=== PATIENT | female | born 1970 | race Caucasian/White ===

== ENCOUNTER 2017-01-25 18:46 | Emergency (ER) | payer MEDICARE, OTHER ==
[~2017-01-25 18:46] MED LIST: BACTRIM DS TAB1 EACH PO; CLEOCIN HCL300 MG PO; COREG3.125 MG PO; CRESTOR20 MG PO; ELIQUIS5 MG PO; HUMALOG100 UNIT/1 SQ; LANTUS100 UNIT/1 SQ; NEURONTIN800 MG PO; PLAVIX75 MG PO; PRILOSEC OTC20 MG PO; TYLENOL325 M1 PO; WELLBUTRIN XL300 MG PO; ZESTRIL20 M1 PO
== END 2017-01-25 20:26 | disposition home or self-care (01) ==
LOC: ER 18:46
DX: S81.801D Unspecified open wound, right lower leg, subsequent encounter (principal); X58.XXXD Exposure to other specified factors, subsequent encounter; Z87.19 Personal history of other diseases of the digestive system; I10 Essential (primary) hypertension; Z95.1 Presence of aortocoronary bypass graft; Z98.51 Tubal ligation status; Z79.02 Long term (current) use of antithrombotics/antiplatelets; Z79.4 Long term (current) use of insulin; Z79.899 Other long term (current) drug therapy; Z88.8 Allergy status to other drugs, medicaments and biological substances; Z88.1 Allergy status to other antibiotic agents
CPT/HCPCS: 99070; 99282; 99283

== ENCOUNTER 2017-03-07 16:33 | Emergency (ER) | payer MEDICARE, OTHER | END 2017-03-07 19:50 | disposition other institution (70) | LOC: ER 16:33 | DX: L03.116 Cellulitis of left lower limb (principal); I10 Essential (primary) hypertension; E11.65 Type 2 diabetes mellitus with hyperglycemia; E87.6 Hypokalemia; I73.9 Peripheral vascular disease, unspecified; Z86.14 Personal history of Methicillin resistant Staphylococcus aureus infection; Z88.8 Allergy status to other drugs, medicaments and biological substances; Z88.1 Allergy status to other antibiotic agents; Z79.899 Other long term (current) drug therapy; Z79.4 Long term (current) use of insulin; Z79.02 Long term (current) use of antithrombotics/antiplatelets | CPT/HCPCS: 99284; 99284-25 ==

== ENCOUNTER 2017-03-07 16:33 | Inpatient (IN) | payer MEDICARE, OTHER ==
[~2017-03-07] VITALS: Ht 170.2 cm; Wt 62.0 kg
[2017-03-07 18:25] LABS: BASO # 0.1 10_X3_uL (0.0-0.1); BASO % 0.8 % (0.1-1.2); EOS # 0.3 10_X3_uL (0.0-0.4); EOS % 2.9 % (0.7-5.8); GRAN # 5.4 10_X3_uL (1.6-6.1); GRAN % 58.2 % (34.0-71.1); HEMATOCRIT 37.2 % (34-45); HEMOGLOBIN 13.2 g/dL (11.2-15.7); LYMPH % 32.3 % (19.3-51.7); MEAN CORPUSCULAR HEMOGLOBIN 28.3 pg (27.0-33.0); MEAN CORPUSCULAR HGB CONC 35.5 g/dL (32.0-36.0); MEAN CORPUSCULAR VOLUME 79.7 fL (79-95); MEAN PLATELET VOLUME 9.6 fl (7.5-11.5); MONO # 0.5 10_X3_uL (0.2-0.9); MONO % 5.8 % (4.7-12.5); PLATELET COUNT 489 x10_3/uL (182-369); RED BLOOD COUNT 4.67 x10_6/uL (3.9-5.2); RED CELL DISTRIBUTION WIDTH 15.4 % (11.7-14.4); WHITE BLOOD COUNT 9.3 x10_3/uL (4.0-10.0)
[2017-03-07 18:38] LABS: BLOOD UREA NITROGEN 10 mg/dL (7-18); CARBON DIOXIDE 21 mmol/L (21-32); CREATININE 0.7 mg/dL (0.6-1.3); POTASSIUM 3.2 mmol/L (3.5-5.1); SODIUM 134 mmol/L (136-145)
[2017-03-07 18:48] LABS: GLUCOSE,RANDOM 510 mg/dL (70-99)
[2017-03-08 06:51] LABS: AHDL CHOLESTEROL 24 mg/dL (>40); ALBUMIN 2.9 gm/dL (3.4-5.0); ALKALINE PHOSPHATASE 103 U/L (50-136); ALT/SGPT 5 U/L (3.5-33.9); AST/SGOT 8 U/L (7.04-26.96); BLOOD UREA NITROGEN 13 mg/dL (7-18); CALCIUM 8.6 mg/dL (8.7-10.7); CARBON DIOXIDE 22 mmol/L (21-32); CHOLESTEROL 182 mg/dL (0-200); CREATININE 0.6 mg/dL (0.6-1.3); GLUCOSE,RANDOM 202 mg/dL (70-99); LDL CHOLESTEROL 125 mg/dL (0-99); POTASSIUM 3.1 mmol/L (3.5-5.1); SODIUM 141 mmol/L (136-145); TOTAL PROTEIN 6.1 gm/dL (6.4-8.2); TRIGLYCERIDES 260 mg/dL (30-200)
[2017-03-08 07:06] LABS: BILIRUBIN,TOTAL < 0.15 mg/dL (0.0-1.0)
== END 2017-03-08 19:02 | disposition other institution (70) | DRG 300 ==
LOC: ER 16:33 → MS 19:50 → UNDODEPER 03-09 14:28
PROVIDERS: General Practice; ADMIT Family Medicine
DX: I73.9 Peripheral vascular disease, unspecified (principal); L03.116 Cellulitis of left lower limb; E11.65 Type 2 diabetes mellitus with hyperglycemia; I10 Essential (primary) hypertension; I25.10 Atherosclerotic heart disease of native coronary artery without angina pectoris; Z95.1 Presence of aortocoronary bypass graft; E78.5 Hyperlipidemia, unspecified; R11.2 Nausea with vomiting, unspecified; R63.4 Abnormal weight loss; Z68.21 Body mass index [BMI] 21.0-21.9, adult; F41.9 Anxiety disorder, unspecified; F32.9 Major depressive disorder, single episode, unspecified; E87.6 Hypokalemia; M54.9 Dorsalgia, unspecified; M25.50 Pain in unspecified joint; M79.1 Myalgia; R05 Cough; Z98.51 Tubal ligation status; F17.210 Nicotine dependence, cigarettes, uncomplicated; Z86.14 Personal history of Methicillin resistant Staphylococcus aureus infection; Z85.3 Personal history of malignant neoplasm of breast; Z85.118 Personal history of other malignant neoplasm of bronchus and lung; Z85.028 Personal history of other malignant neoplasm of stomach; Z88.1 Allergy status to other antibiotic agents; Z88.8 Allergy status to other drugs, medicaments and biological substances; Z79.4 Long term (current) use of insulin; Z79.02 Long term (current) use of antithrombotics/antiplatelets; Z79.899 Other long term (current) drug therapy
CPT/HCPCS: 36415; 73630; 80048; 80053; 80061; 82009; 82962; 83036; 85025; 87070; 96365; 99070; 99284; 99284-25; J3370; J7040; J7050; Q0169

== ENCOUNTER 2017-04-12 15:17 | Emergency (ER) | payer MEDICARE, OTHER ==
[2017-04-12 16:16] LABS: BASO # 0.1 10_X3_uL (0.0-0.1); BASO % 0.7 % (0.1-1.2); EOS # 0.4 10_X3_uL (0.0-0.4); EOS % 4.2 % (0.7-5.8); GRAN # 5.8 10_X3_uL (1.6-6.1); GRAN % 60.2 % (34.0-71.1); HEMATOCRIT 32.7 % (34-45); HEMOGLOBIN 10.9 g/dL (11.2-15.7); LYMPH # 2.8 10_X3_uL (1.2-3.7); LYMPH % 28.5 % (19.3-51.7); MEAN CORPUSCULAR HEMOGLOBIN 27.8 pg (27.0-33.0); MEAN CORPUSCULAR HGB CONC 33.3 g/dL (32.0-36.0); MEAN CORPUSCULAR VOLUME 83.4 fL (79-95); MEAN PLATELET VOLUME 9.1 fl (7.5-11.5); MONO # 0.6 10_X3_uL (0.2-0.9); MONO % 6.4 % (4.7-12.5); PLATELET COUNT 444 x10_3/uL (182-369); RED BLOOD COUNT 3.92 x10_6/uL (3.9-5.2); RED CELL DISTRIBUTION WIDTH 15.8 % (11.7-14.4); WHITE BLOOD COUNT 9.7 x10_3/uL (4.0-10.0)
== END 2017-04-12 18:28 | disposition home or self-care (01) ==
LOC: ER 15:17
PROVIDERS: Emergency Medicine
DX: I96 Gangrene, not elsewhere classified (principal); L03.116 Cellulitis of left lower limb; I51.9 Heart disease, unspecified; E11.9 Type 2 diabetes mellitus without complications; Z98.51 Tubal ligation status; Z95.1 Presence of aortocoronary bypass graft; F17.210 Nicotine dependence, cigarettes, uncomplicated; K86.1 Other chronic pancreatitis; Z88.1 Allergy status to other antibiotic agents; Z88.8 Allergy status to other drugs, medicaments and biological substances
CPT/HCPCS: 36415; 85025; 96372; 99283-25

== ENCOUNTER 2017-05-24 21:11 | Emergency (ER) | payer MEDICARE, OTHER | END 2017-05-25 00:45 | disposition home or self-care (01) | LOC: ER 21:11 | DX: S91.301A Unspecified open wound, right foot, initial encounter (principal); L03.115 Cellulitis of right lower limb; X58.XXXA Exposure to other specified factors, initial encounter; Z89.412 Acquired absence of left great toe; E11.9 Type 2 diabetes mellitus without complications; I10 Essential (primary) hypertension; I51.9 Heart disease, unspecified; E78.5 Hyperlipidemia, unspecified; Z79.4 Long term (current) use of insulin; Z79.899 Other long term (current) drug therapy; Z88.1 Allergy status to other antibiotic agents; Z88.8 Allergy status to other drugs, medicaments and biological substances | CPT/HCPCS: 96372; 99070; 99282-25; 99283 ==